=== PATIENT | female | born 1945 | race Caucasian/White ===

== ENCOUNTER → 2016-11-30 | Outpatient (CLI) | payer MEDICARE, BC ==
--- NOTE | ~2016-11-30 | MY29 ---
[facility] A Service of [facility] RADIOLOGY TEXT RESULTS PATIENT: NELY SO LOCATION: [facility] : 47 UNIT #: [id number] AGE: [address]: Tyrone Bui MD SEX: F ORDER DR: [id number] [facility] [address] [place], [place] [address] [id number] O MR#: [id number] Acc #: [id number] NAME: NELY SO : 1945 SEX: F STUDY DATE/TIME: 11/30/2016 10:18 UNIT: [facility] ROOM: STUDY DESCRIPTION: MY JAMES SCREENING W/ CAD BILAT Attending Physician: Tyrone Bui M.D. Referring Physician: Tyrone Bui M.D. Ordering Physician: Tyrone Bui M.D. Primary Care Physician: Tyrone Bui M.D. MEDICAL IMAGING REPORT This report is preliminary unless electronic signature is present EXAM Digital screening mammogram, 11/30/2016 HISTORY 71-year-old woman no risk elevation. Annual screening. COMPARISON Mammograms date to 05/21/2006 with most recent screening 09/11/2014. Followup diagnostic left breast imaging 10/13/2014. FINDINGS Digital imaging of each breast was completed utilizing standard craniocaudal and mediolateral-oblique projections. Review and interpretation of digital mammograms include a second review in conjunction with FDA-approved CAD device. There is an overall increase in the parenchymal presentation bilaterally with a generalized fibronodular pattern in each breast. There are no breast masses and I see no asymmetry in the parenchymal presentation. There are no suspicious microcalcifications and I see no architectural disturbance. IMPRESSION Benign mammogram. One-year followup recommended. Patients over the age of 40 are entered into a reminder system with target due date for the next mammogram. A result letter will also be sent to the patient. BIRADS: 2 Benign finding Dictated by... Daniel Oconnor M.D. THIS IS AN ELECTRONICALLY VERIFIED REPORT [facility] A Service of [facility] RADIOLOGY TEXT RESULTS PAT[facility]: [facility]ELY SO [id number] [birth year] UNIT #: [id number] AGE: [address]: Tyrone Bui MD SEX: F ORDER DR: Daniel Oconnor M.D. at 11/30/2016 2:43 PM Alfred TD: 11/30/2016 13:08 JOB #: [id number] MEDICAL IMAGING REPORT Page 1 of 1 COPY
--- NOTE | ~2016-11-30 | BD1 ---
[facility] A Service of [facility] RADIOLOGY TEXT RESULTS PATIENT: NELY SO LOCATION: [facility] : 47 UNIT #: [id number] AGE: [address]: Tyrone Bui MD SEX: F ORDER DR: [id number] [facility] [address] [place], [place] [address] [id number] O MR#: [id number] Acc #: [id number] NAME: NELY SO : 1945 SEX: F STUDY DATE/TIME: 11/30/2016 10:28 UNIT: [facility] ROOM: STUDY DESCRIPTION: BD Dexa Bone Dens 1+ Site Attending Physician: Tyrone Bui M.D. Referring Physician: Tyrone Bui M.D. Ordering Physician: Tyrone Bui M.D. Primary Care Physician: Tyrone Bui M.D. MEDICAL IMAGING REPORT This report is preliminary unless electronic signature is present EXAM Bone density spine/hip 11/30/2016 HISTORY Osteo. On Premarin. Cataract surgery with implants. Postmenopausal. The patient is 155 pound 71-year-old female. TECHNIQUE Bone density scanning was performed upper 4 lumbar vertebral segments and left proximal femur. COMPARISON No comparisons FINDINGS L1-L4: Bone mineral density 1.019 g/cm sq for a T-score 0.37 standard deviations below mean for a reference population normal young individuals and a Z-score 1.9 standard deviations above the mean for age-match population. Proximal left femur total bone mineral density of 0.892 g/cm sq for a T-score 0.4 standard deviations below mean for reference population normal young individuals with Z score 1.17 deviations above mean for age-match population. Left femoral neck bone mineral density 0.774 g/cm sq for a T-score 0.7 standard deviations below mean for a reference population normal young individuals and a Z-score 1.2 standard deviations above the mean for age-matched population. IMPRESSION Normal bone mineral density upper 4 lumbar vertebral segments and left proximal femur. Please correlate with the patient's clinical status. Continued surveillance recommended. [facility] A Service of [facility] & [facility] RADIOLOGY TEXT RESULTS PATIENT: NELY SO LOCATION: [facility] : 47 UNIT #: [id number] AGE: [address]: Tyrone Bui MD SEX: F ORDER DR: Dictated by... Giuliano Sims M.D. THIS IS AN ELECTRONICALLY VERIFIED REPORT Giuliano Sims M.D. at 12/01/2016 5:58 PM KIA/shamar TD: 11/30/2016 15:54 JOB #: [id number] MEDICAL IMAGING REPORT Page 1 of 1 COPY
== END | disposition home or self-care (01) ==
LOC: CWCC 11-22 07:30
DX: Z13.820 Encounter for screening for osteoporosis (principal); Z12.31 Encounter for screening mammogram for malignant neoplasm of breast
CPT/HCPCS: 77080; G0202